=== PATIENT | male | born 1955 | race Caucasian/White ===

== ENCOUNTER → 2016-09-14 | Outpatient (CLI) | payer BC, OTHER ==
[~2016-09-14] VITALS: Ht 172.7 cm; Wt 83.7 kg
[~2016-09-14] MED LIST: HYDROCODON-ACE1 EAC5 PO; HYDROCODONE-AP1 EAC6 PO; HYDROCODONE-AP1 EACH PO; HYDROXYCHLOROQ200 M1 PO; HYSINGLA ER40 MG PO; IBUPROFEN 400400 M1 PO; TRAMADOL 50 MG50 MG PO
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
[2016-09-14 08:09] VITALS: BP 126/90
== END ==
LOC: PAIN 06:03
DX: G89.29 Other chronic pain (principal); M19.90 Unspecified osteoarthritis, unspecified site

== ENCOUNTER → 2016-11-08 | Outpatient (CLI) | payer BC, OTHER | LOC: RAD 15:11 | DX: N20.0 Calculus of kidney (principal); R31.9 Hematuria, unspecified ==

== ENCOUNTER → 2016-12-07 | Outpatient (CLI) | payer BC, OTHER ==
[~2016-12-07] VITALS: Ht 175.3 cm; Wt 80.6 kg
[~2016-12-07] MED LIST changes: +ELIQUIS5 MG PO; +LOPRESSOR50 PO
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
[2016-12-07 08:08] VITALS: BP 141/84
== END ==
LOC: PAIN 07:05
DX: M17.0 Bilateral primary osteoarthritis of knee (principal)

== ENCOUNTER → 2017-05-17 | Outpatient (CLI) | payer BC, OTHER ==
[~2017-05-17] VITALS: Ht 175.3 cm; Wt 84.5 kg
[~2017-05-17] MED LIST changes: +KLOR-CON 1010 MEQ PO
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
[2017-05-17 09:56] VITALS: BP 162/86
== END ==
LOC: PAIN 06:43
DX: M25.561 Pain in right knee (principal); M25.562 Pain in left knee; M25.571 Pain in right ankle and joints of right foot; M25.572 Pain in left ankle and joints of left foot; M79.641 Pain in right hand; M79.642 Pain in left hand; M19.90 Unspecified osteoarthritis, unspecified site; Z98.890 Other specified postprocedural states

== ENCOUNTER → 2017-08-04 | Outpatient (CLI) | payer BC, OTHER ==
[~2017-08-04] VITALS: Ht 175.3 cm; Wt 84.5 kg
--- NOTE | ~2017-08-04 | HPC ---
[facility] [address] [address] PAIN MANAGEMENT CONSULTATION Name: ASHLEY JERONIMO Room #: REG [facility] Candi.#: [id number] Admission: 08/04/17 Attend Phys: Shyam Flores MD Discharge: Date of : 57 Report #: [id number] THIS REPORT FOR: //name// CC: Shaym Marie MD DATE OF SERVICE: 08/04/2017 FOLLOWUP COMPLAINT: "Things are going well. Medications working good." FOLLOWUP HISTORY: The patient is a 62-year-old gentleman who has been followed in the pain clinic. 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 He has been busy and traveling. Overall, things are going reasonably well. He finds his medications are helpful. He is having no complications from their use. He is happy with the results of medication. He is clear in mentation. He keeps his medication in a guarded area. He is watching the dialogue regarding opioid medications in the media. He feels that his medications are working well. Rates his pain as a 3/10. As you recall, he has pain in his knees, ankles and hands as a result of arthritis. He would like to continue with his medications and feel that they are enabling him to stay gainfully employed without an active. ALLERGIES: No known drug allergies. MEDICATIONS: Ibuprofen 400 mg q.i.d. p.r.n., potassium 10 mEq, hydrocodone/acetaminophen 10/325 one p.o. q. 4 hours p.r.n. pain. PAIN CLINIC ASSESSMENT: 1. History of osteoarthritis involving the right lower extremity, right upper extremity, left upper extremity and left lower extremity. 2. Pain intensity 06/24. 3. Fall risk. The patient has not fallen. 4. Blood thinner. The patient is not on a blood thinner 5. History of hypertension. The patient is not being treated for hypertension. 6. Opioid therapy greater than 6 weeks. The patient is receiving opioid medications from the pain clinic. 7. Risk assessment tool. 8. Functional assessment tool. 9. Recreational drug use. Denies use of recreational drugs. 10. Tobacco: Never used tobacco. 11. Alcohol frequency, 1-2 alcoholic beverages weekly. PHYSICAL EXAMINATION: VITAL SIGNS: Height 5 feet 9, weight 186 pounds, BMI is 27. Blood pressure 136/87, pulse 93, respiratory rate 16, room air saturation 100%. [place] [address] PAIN MANAGEMENT CONSULTATION Name: ASHLEY JERONIMO Room #: REG [facility]#: [id number] Admission: 08/04/17 Attend Phys: Shyam Flores MD Discharge: Date of : 57 Report #: [id number] GENERAL: The patient is a well-developed white male, appears his stated age. He is alert and oriented x 3. Affect is appropriate. Speech is fluent. The patient appears happy. HEENT: Normocephalic, atraumatic. Extraocular eye muscles intact. Sclerae is nonenteric. Hearing is within normal limits. Mucous membranes are moist NECK: Without bruits. Good range of motion, without adenopathy. HEART: Regular rate. ABDOMEN: Nontender, without organomegaly. MUSCULOSKELETAL: Without significant scoliosis, kyphosis or lordosis. Upper muscle groups are 5/5. For the major muscle groups in the upper extremity with symmetry and without sensory change. Lower extremity some pain and discomfort in the lower portion of the back with 5/5 muscle strength in this area as well. He has some pain and discomfort in the low back area, knees and ankles secondary to osteoarthritis. IMPRESSION: 1. History of osteoarthritis. 2. History of anterior cruciate ligament tear. 3. History of rheumatoid arthritis. 4. Lower upper extremity, upper extremity, and right upper extremity affected by rheumatoid arthritis. IMPRESSION: 1. Chronic pain secondary to chronic back, knee and ankle pain. 2. History of chest pain, status post surgery for constrictive pericarditis. 3. Osteoarthritis. 4. History of torn anterior cruciate ligament has been repaired. RECOMMENDATIONS: We discussed treatment options with the patient. He finds that he is able pick and use his medications to remain active. He has had no complications with their use. He continues to watch the media report regarding opioid medications. He is not having any problems with his medications. He is not having any significant problems with tolerance. Overall, he finds the medications enable him to stay gainfully employed and enjoy a reasonable level of activity. He would like to continue with his medications. We would like to thank you for letting us participate in his care. A script for his medications of hydrocodone 10/325 one p.o. 6 times per day, has been written. He will call us if he has any problems with the medications. We would like to thank you for letting us participate in his care. We hope he continues to improve. <ELECTRONICALLY SIGNED> By: Shyam Flores MD 08/08/17 0823 1436 14 Shyam Flores MD /PMT
[2017-08-04 09:56] VITALS: BP 136/87
== END ==
LOC: PAIN 07:06
DX: G89.29 Other chronic pain (principal); M54.9 Dorsalgia, unspecified; M25.561 Pain in right knee; M25.562 Pain in left knee; M25.571 Pain in right ankle and joints of right foot; M25.572 Pain in left ankle and joints of left foot; M19.90 Unspecified osteoarthritis, unspecified site

== ENCOUNTER → 2017-10-25 | Outpatient (CLI) | payer BC, OTHER ==
[~2017-10-25] VITALS: Ht 175.3 cm; Wt 82.4 kg
--- NOTE | ~2017-10-25 | HPC ---
[facility] [address] [place] [address] PAIN MANAGEMENT CONSULTATION Name: ASHLEY JERONIMO Room #: REG [facility]#: [id number] Admission: 10/25/17 Attend Phys: Zach Booker DO Discharge: Date of : 57 Report #: [id number] THIS REPORT FOR: //name// CC: Zach Marie MD DATE OF SERVICE: 10/25/2017 REFERRING PHYSICIAN: Edwar Marie MD CHIEF COMPLAINT: Low back pain, bilateral lower extremity pain. HISTORY OF PRESENT ILLNESS: As you know, the patient is a very pleasant 62-year-old male who returns today in followup visit for medication management. He typically follows with my partner, Dr. Daniel Flores, for medication therapies. He is currently taking hydrocodone 10/325 up to 6 a day. He has precluded from having a long-acting opioid medications per his employers. 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 He subsequently changed jobs, but they have the same criteria. He continues to take hydrocodone 60 mg dose per day with good efficacy. He is denying any side effects to therapy including somnolence, decreased mental acuity, disorientation and confusion. He places pain score no greater than 3/10. He returns requesting refill on medications. ALLERGIES: No known drug allergies. CURRENT MEDICATIONS: Hydrocodone 10/325 six a day, potassium chloride 10 mEq p.o. q. day, ibuprofen 400 mg 3 times a day. SOCIAL HISTORY: The patient denies tobacco, alcohol, IV or illicit drug use. He is working, not receiving workmen's compensation, unaccompanied today. IMAGING: There is no new imaging available. PHYSICAL EXAMINATION: VITAL SIGNS: Blood pressure 156/101, pulse is 111. Respiratory rate 16, unlabored. The patient is 94% on room air. Height 5 feet 9 inch tall, weight 181.6 pounds, BMI calculated 26.8. GENERAL: Well-developed, well-nourished, well-hydrated 62-year-old male, appears his stated age, placing current pain score at 3/10. HEENT: Normocephalic, atraumatic. Pupils equal, round, reactive to light. Extraocular muscles are intact. Sclerae nonicteric, without injection. Speech is fluent. EXTREMITIES: Show no clubbing, no cyanosis, no edema. [address] [address] PAIN MANAGEMENT CONSULTATION Name: ASHLEY JERONIMO Room #: REG [facility]#: [id number] Admission: 10/25/17 Attend Phys: Zach Booker DO Discharge: Date of : 57 Report #: [id number] MUSCULOSKELETAL: Upper extremity strength, lower extremity strength 5/5. He is intact to light touch from C5-T1 dermatomes, from L1 through S2 dermatomes. Active and passive range of motion of the bilateral knees cause intensification of pain. Lumbar provocation testing causes intensification of axial back pain, no radiation of symptoms. ASSESSMENT: 1. Lumbosacral spondylosis without radiculopathy. 2. Bilateral knee osteoarthritis. 3. Opioid dependency. 4. Chronic intractable pain. PLAN: 1. The patient returns today in followup visit for medication management. We have had a long discussion today about opioid use for chronic pain issues. The patient currently takes 60 mg morphine equivalents a day, which is below the CDC guidelines of no more than 90 morphine equivalents a day. The patient is taking hydrocodone 10/325 up to 6 a day as he is not able to have long-acting opioids per his employer's request. The patient has returned requesting refill on medications. He is denying side effects to therapy and feels are working beneficially. 2. The patient was provided prescription of hydrocodone 10/325 one tab p.o. q.4 hours p.r.n. for pain, I have given the patient #180, releases of today and 4 weeks from today. He will follow up with Dr. Flores in 2 months. 3. The patient is to fill his prescriptions today. There has been some concern about filling of medications with specific number of pills. I do not believe his third constitution party payer has restrictions on number of pills, mainly a restriction upon a total dosage. The patient will attempt to fill this medication today. We will adjust therapy if necessary. By: [id number] Zach Booker DO /nt
[2017-10-25 07:54] VITALS: BP 156/101
== END ==
LOC: PAIN 07:42
DX: M47.27 Other spondylosis with radiculopathy, lumbosacral region (principal); M17.0 Bilateral primary osteoarthritis of knee; F11.20 Opioid dependence, uncomplicated; G89.4 Chronic pain syndrome

== ENCOUNTER → 2018-03-07 | Outpatient (CLI) | payer BC, OTHER ==
[~2018-03-07] VITALS: Ht 175.3 cm; Wt 85.3 kg
[2018-03-07 08:17] VITALS: BP 141/89
== END ==
LOC: PAIN 06:24
DX: M54.5 Low back pain (principal); M25.561 Pain in right knee; M25.562 Pain in left knee; M79.642 Pain in left hand; M79.641 Pain in right hand; G89.29 Other chronic pain; M25.572 Pain in left ankle and joints of left foot; M25.571 Pain in right ankle and joints of right foot; M06.842 Other specified rheumatoid arthritis, left hand; M06.841 Other specified rheumatoid arthritis, right hand; M06.89 Other specified rheumatoid arthritis, multiple sites; Z79.891 Long term (current) use of opiate analgesic; Z72.89 Other problems related to lifestyle

== ENCOUNTER → 2018-05-29 | Outpatient (CLI) | payer BC, OTHER ==
[~2018-05-29] VITALS: Ht 175.3 cm; Wt 85.3 kg
[2018-05-29 09:12] VITALS: BP 134/80
--- NOTE | 2018-05-29 09:14 | NUR ---
Pain Clinic Assessment: 1. History of Osteoarthritis: Not Applicable History of Rheumatoid Arthritis: Left Lower Extremity Right Lower Extremity Left Upper Extremity Right Upper Extremity 2. Height: 5 ft. 9 in. 175.3 cm. Weight: 188.0 lb. oz. 85.276 kg. Patient's BMI: 27.8 3. Vital Signs: BP: 134/80 Pulse: 88 Resp: 16 Temp: 02 Sat: 97 ECG Mon: 4. Pain Intensity: 2 5. Fall Risk: Dizziness: N Needs help standing or walking: N Fallen in the last 3 months: N Fall risk comments: 6. Patient on Blood Thinner: None 7. History of Hypertension: Y 8. Opioid Therapy greater than 6 weeks: Y Opiate Contract Signed: 10/23/15 9. Risk Assessment Tool Provided: 10. Functional Assessment Tool: 11. Recreational Drug Use: Never Drug Type: Tobacco Use: Never Smoker Tobacco Type: Amount or Packs/day: How Many Years: Alcohol Use: Yes Frequency: Quant:
--- NOTE | 2018-05-30 07:34 | HPC ---
[facility] [address] [place] [address] PAIN MANAGEMENT CONSULTATION Name: ASHLEY JERONIMO Room #: REG [facility] [id number] Admission: 05/29/18 Attend Phys: Luz Elena Anglin Discharge: Date of : 57 Report #: [id number] THIS REPORT FOR: //name// CC: Luz Elena Marie DATE OF SERVICE: 05/29/2018 CHIEF COMPLAINT: Low back pain, knee pain and ankle pain. HISTORY OF PRESENT ILLNESS: The patient tells me that he is doing reasonably well with his current pain regimen, placing his pain score 2/10. He tells me it is constant, achy pain. 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 He tells me that he did have a bilateral hernia repair in April and has been healing quite nicely from that. The patient tells me that he is also having some left shoulder pain today. He tells me that he has inherited his arthritis from his mother, and he will be seeing Dr. Marie about that soon. ALLERGIES: No known drug allergies. CURRENT MEDICATIONS: Hydrocodone 10/325 one q.4 hours. Potassium 10 mEq twice daily, ibuprofen 400 mg as needed. PQRS: 1. The patient has some arthritic changes involving his lower extremities and bilateral shoulders. He is not being treated for rheumatoid arthritis. 2. Height is 5 feet 9 inches, weight is 188, BMI 27.8. 3. Vital signs: Blood pressure 134/80, pulse is 88, respirations 16, oxygen sat is 97%. 4. Pain score is 2/10. 5. Fall risk. He denies dizziness, does not need help walking or standing. Has not fallen in the last 3 months. 6. The patient is not on any blood thinners. He does have a history of hypertension, though not being treated for this presently. 7. Opioid therapy is greater than 6 weeks, therefore, an opioid contract is on the chart. His risk assessment tool is low. His functional assessment is 20/70. 8. The patient denies recreational drug use. He is not a smoker and occasionally drinks alcohol. We discussed treatment, and we looked at the prescription monitoring system. The patient is filling appropriately from Dr. Flores. He did have one fill when he had his hernia repair for a 5-day supply of hydrocodone. [place] [address] PAIN MANAGEMENT CONSULTATION Name: KANDACEASHLEY UNGER Room #: REG FABIAN King#: [id number] Admission: 05/29/18 Attend Phys: Luz Elena Anglin Discharge: Date of : 57 Report #: [id number] buccal drug screen on this patient today since we do not have a drug screen on our chart. PHYSICAL EXAMINATION: GENERAL: This is a well-developed, well-nourished white male, who appears his stated age. He is alert and orientated. His affect is appropriate. His speech is fluent. HEENT: Normocephalic, atraumatic. Extraocular eye muscles are intact. Mucous membranes are moist. MUSCULOSKELETAL: Muscle strength in the upper extremity judged to be 5/5 in all major muscle groups. Does complain of left shoulder pain today with rotation. Lower extremity strength judged to be 5/5 in all major muscle groups. The patient does complain of some osteoarthritis changes in his low back, knees, ankles and hands. IMPRESSION: 1. Pain secondary to chronic pain involving his back, knees, ankles and shoulders. 2. History of chest pain, status post surgery with removal of fibrous tissue. 3. Osteoarthritis. We reviewed the fact that opiate medications are being used to provide analgesia adequate to support activities of daily living, not attempting to achieve a specific pain score on the 0-10 Visual Analog Scale. The current opiate medications are providing sufficient analgesia to allow the patient to participate in activities of daily living. The patient is not exhibiting any aberrant behavior suggestive of drug diversion. The patient is not having any adverse reactions to medications. The patient is not suffering from daytime somnolence or mental acuity changes. The patient is managing opiate-induced constipation with appropriate oyxr-ovp-cvykmmr agents and dietary considerations. The patient was counseled on concern for caution with operating a motor vehicle while using opiate medications. A physical exam was performed and the patient's functional status was evaluated. All patients with back pain were advised against the bed rest greater than 4 days and were advised to return to normal activities. Pain score assessment was noted and the treatment plan was reviewed with the patient. All current medications, both prescribed and OTC were reviewed and reconciled on the electronic medical record. Tobacco screening was accomplished and smoking cessation was advised when indicated. BMI was noted and diet/exercise modification was recommended for all patients following outside normal parameters. I reviewed with the patient today their responsibilities to safeguard prescription medications, reviewed their responsibility to utilize medications only as prescribed by the physician. They are to seek and receive pain [address] [address] PAIN MANAGEMENT CONSULTATION Name: ASHLEY JERONIMO Room #: REG FABIAN King#: [id number] Admission: 05/29/18 Attend Phys: Luz Elena Anglin Discharge: Date of : 57 Report #: [id number] medications only from 1 physician group ( [facility]). They are to use 1 pharmacy and keep the clinic informed if they change pharmacies. Their responsibilities include making followup visits in a timely fashion and to avoid abrupt discontinuation of medication usage. Their responsibilities further include bringing their medications (bottles from the pharmacy with residual pills) to the visit for possible confirmation of pill counts and the patient understands it is their responsibility to submit to random drug screens to ensure both that the medications prescribed are present, and that no other controlled substances are present. All prescriptions provided today were generated electronically. RECOMMENDATIONS: 1. We discussed treatment options with the patient today. We discussed the CDC guidelines of morphine milliequivalents. The patient is currently at 60 morphine mEq, which falls in the guidelines below 90s that they would like us to adhere to. The patient will be given 3 months of hydrocodone 10/325, quantity #180 for today, 4-week release and 8-week release. 2. We will check a buccal drug screen on the patient today since there is not one on our chart. We would like to have yearly checks of these. The patient is agreeable with these. 3. We did talk briefly about the patient's shoulder and ongoing discomfort. We talked about treatment options other than ibuprofen like Meloxicam or Celebrex or Voltaren gel or DSMO that the patient has used in the past years ago for ankle pain. The patient has an appointment with Dr. Marie soon to discuss his shoulder issues. 4. The patient will be seen in 3 months' time. 5. The patient is seen in collaboration today with Dr. Zach Booker. <ELECTRONICALLY SIGNED> By: Luz Elena Anglin 05/30/18 0734 [id number] Luz Elena Anglin /nt
== END ==
LOC: PAIN 08:43
DX: M19.90 Unspecified osteoarthritis, unspecified site (principal); G89.29 Other chronic pain; M54.5 Low back pain; M25.561 Pain in right knee; M25.562 Pain in left knee; M25.511 Pain in right shoulder; M25.512 Pain in left shoulder; M25.572 Pain in left ankle and joints of left foot; M25.571 Pain in right ankle and joints of right foot

== ENCOUNTER → 2018-08-15 | Outpatient (CLI) | payer BC, OTHER ==
[~2018-08-15] VITALS: Ht 175.3 cm; Wt 84.8 kg
[2018-08-15 11:21] VITALS: BP 136/89
--- NOTE | 2018-08-15 11:25 | NUR ---
Pain Clinic Assessment: 1. History of Osteoarthritis: Not Applicable History of Rheumatoid Arthritis: Left Lower Extremity Right Lower Extremity Left Upper Extremity Right Upper Extremity 2. Height: 5 ft. 9 in. 175.3 cm. Weight: 187.0 lb. oz. 84.823 kg. Patient's BMI: 27.6 3. Vital Signs: BP: 136/89 Pulse: 98 Resp: 16 Temp: 02 Sat: 97 ECG Mon: 4. Pain Intensity: 3 5. Fall Risk: Dizziness: N Needs help standing or walking: N Fallen in the last 3 months: N Fall risk comments: 6. Patient on Blood Thinner: None 7. History of Hypertension: Y 8. Opioid Therapy greater than 6 weeks: Y Opiate Contract Signed: 10/23/15 9. Risk Assessment Tool Provided: 0-low 10. Functional Assessment Tool: 11. Recreational Drug Use: Never Drug Type: Tobacco Use: Never Smoker Tobacco Type: Amount or Packs/day: How Many Years: Alcohol Use: Yes Frequency: Quant:
--- NOTE | 2018-08-16 13:27 | HPC ---
[facility] [address] [place] [address] PAIN MANAGEMENT CONSULTATION Name: ASHLEY JERONIMO Room #: REG Rosangela King#: [id number] Admission: 08/15/18 ������������������ Attend Phys: Luz Elena Anglin Discharge: ������������������ Date of : 57 Report #: [id number] THIS REPORT FOR: //name// CC: Luz Elena Rodrigueze [facility] DATE OF SERVICE: 08/15/2018 CHIEF COMPLAINT: Low back pain, knee pain and ankle pain. HISTORY OF PRESENT ILLNESS: This is a very pleasant 63-year-old gentleman who returns to the pain clinic today for refill of his medications for his ongoing low back, knee, ankle and hand pain. He tells me that his hips have started hurting as well and he has an appointment with his primary care doctor next week who will probably refer him back to his band head saw operator that he has seen in the past. His pain score today is a 3/10, worse with lying down and worse in the morning. It is better with his medication as well as activity and stretching and massage. He denies any problems with constipation or daytime sleepiness. He would just like a refill of his medications today. ALLERGIES: No known drug allergies. CURRENT LIST OF MEDICATIONS: Hydrocodone 10/325 every 4 hours p.r.n., potassium 10 mEq b.i.d., ibuprofen p.r.n. and aspirin 81 mg daily. PQRS: 1. He has arthritic changes involving his lower extremities, shoulders, hands and hips. He is not being treated for rheumatoid arthritis currently. 2. Height is 5 feet 9 inches, weight is 187. BMI is 27. 3. Vital signs: Blood pressure 136/89, pulse is 98, respirations 16, oxygen sat 97%. 4. Pain score 3/10. 5. The patient denies dizziness. Does not need help walking or standing and has not fallen in the last 3 months. 6. The patient is not on any blood thinners and does take medicine for hypertension. 7. Opiate therapy is greater than 6 weeks; therefore, an opioid signed contract is on the chart. 8. Risk assessment tool is low. Functional assessment is of . 9. Recreational drug use, he denies. He is not a smoker and occasionally drinks alcohol. We did check the prescription monitoring system. The patient is filling appropriately with his medications and is due at this time for those refills. The patient also has a drug screen that we performed on the last visit that is appropriate, that is on the chart. He tells me he [place] [address] PAIN MANAGEMENT CONSULTATION Name: ASHLEY JERONIMO Room #: REG Rosangela King#: [id number] Admission: 08/15/18 ������������������ Attend Phys: Luz Elena Anglin Discharge: ������������������ Date of : 57 Report #: [id number] PHYSICAL EXAMINATION: GENERAL: This is a well-developed, well-nourished white gentleman who appears his stated age. Placing his pain score today at 3/10. He is alert and orientated. His affect is appropriate. HEENT: Normocephalic, atraumatic. Extraocular eye muscles are intact. Mucous membranes are moist. MUSCULOSKELETAL: Muscle strength is judged to be 5/5 in all major muscle groups in his upper and lower extremities bilaterally. He does complain of hand pain, shoulder pain and hip pain today thinking that his rheumatoid arthritis is flaring up, but he also does have osteoarthritis. IMPRESSION: 1. Pain secondary to chronic pain involving his back, knees, ankles and shoulders. 2. History of chest pain, status post surgery with removal of fibrosis tissue and ablation. 3. Osteoarthritis. We reviewed the fact that opiate medications are being used to provide analgesia adequate to support activities of daily living, not attempting to achieve a specific pain score on the 0-10 Visual Analog Scale. The current opiate medications are providing sufficient analgesia to allow the patient to participate in activities of daily living. The patient is not exhibiting any aberrant behavior suggestive of drug diversion. The patient is not having any adverse reactions to medications. The patient is not suffering from daytime somnolence or mental acuity changes. The patient is managing opiate-induced constipation with appropriate omus-fpi-awajymu agents and dietary considerations. The patient was counseled on concern for caution with operating a motor vehicle while using opiate medications. A physical exam was performed and the patient's functional status was evaluated. All patients with back pain were advised against the bed rest greater than 4 days and were advised to return to normal activities. Pain score assessment was noted and the treatment plan was reviewed with the patient. All current medications, both prescribed and OTC were reviewed and reconciled on the electronic medical record. Tobacco screening was accomplished and smoking cessation was advised when indicated. BMI was noted and diet/exercise modification was recommended for all patients following outside normal parameters. I reviewed with the patient today their responsibilities to safeguard prescription medications, reviewed their responsibility to utilize medications only as prescribed by the physician. They are to seek and receive pain medications only from 1 physician group ([facility]). They are to use 1 pharmacy and keep the clinic informed if they change pharmacies. Their [facility] [address] [place] [address] PAIN MANAGEMENT CONSULTATION Name: ASHLEY JERONIMO Room #: REG FABIAN King#: [id number] Admission: 08/15/18 ������������������ Attend Phys: Luz Elena Anglin Discharge: ������������������ Date of : 57 Report #: [id number] responsibilities include making followup visits in a timely fashion and to avoid abrupt discontinuation of medication usage. Their responsibilities further include bringing their medications (bottles from the pharmacy with residual pills) to the visit for possible confirmation of pill counts and the patient understands it is their responsibility to submit to random drug screens to ensure both that the medications prescribed are present, and that no other controlled substances are present. All prescriptions provided today were generated electronically. PLAN: 1. We discussed treatment options with the patient today. The patient tells me he is having more general aches and pains in his joints. He is scheduled to see Dr. Edwar Marie next week and thinks that he will go back to the band head saw operator that he has seen in the past. He currently takes ibuprofen on an as needed basis, not even taking it daily. I encouraged him to take this at least 1 pill a day. We did discuss other nonsteroidal anti-inflammatories such as Celebrex and meloxicam that are stronger prescription strength. Celebrex is usually given when people have cardiac risk, but he will discuss this with his primary care and his band head saw operator. They may decide to start him on some rheumatological medicines. 2. We discussed the buccal drug screen that was performed on the patient in May. It is appropriate for his medications that he is taking, though he received a large bill. We are told this is to be covered by his insurance company, gave him names for 4M to discuss this bill that the patient did receive. 3. Prescriptions given today for hydrocodone one p.o. q. 4 hours p.r.n. #180 to be released today for an 8-week. 4. The patient will return for the followup in 3 months' time period and make an appointment to see Dr. Flores. Dr. Flores collaborated care and saw the patient today. ��������������������������������������������� <ELECTRONICALLY SIGNED> ���������������������������������������� By: Luz Elena Anglin ��������������������������������������������� 08/16/18 1327 07 57 Luz Elena Anglin /nt
== END ==
LOC: PAIN 07:20
DX: M19.90 Unspecified osteoarthritis, unspecified site (principal); G89.29 Other chronic pain; M54.5 Low back pain; M25.561 Pain in right knee; M25.562 Pain in left knee; M25.511 Pain in right shoulder; M25.512 Pain in left shoulder; M25.571 Pain in right ankle and joints of right foot; M25.572 Pain in left ankle and joints of left foot; Z86.79 Personal history of other diseases of the circulatory system; Z79.899 Other long term (current) drug therapy

== ENCOUNTER → 2018-11-02 | Outpatient (CLI) | payer BC, OTHER ==
[~2018-11-02] VITALS: Ht 175.3 cm; Wt 83.0 kg
[2018-11-02 08:24] VITALS: BP 141/93
--- NOTE | 2018-11-02 08:25 | NUR ---
Pain Clinic Assessment: 1. History of Osteoarthritis: Not Applicable History of Rheumatoid Arthritis: Left Lower Extremity Right Lower Extremity Left Upper Extremity Right Upper Extremity 2. Height: 5 ft. 9 in. 175.3 cm. Weight: 183.0 lb. oz. 83.008 kg. Patient's BMI: 27.0 3. Vital Signs: BP: 141/93 Pulse: 96 Resp: 16 Temp: 02 Sat: 97 ECG Mon: 4. Pain Intensity: 3 5. Fall Risk: Dizziness: N Needs help standing or walking: N Fallen in the last 3 months: N Fall risk comments: 6. Patient on Blood Thinner: None 7. History of Hypertension: Y 8. Opioid Therapy greater than 6 weeks: Y Opiate Contract Signed: 10/23/15 9. Risk Assessment Tool Provided: 0-low 10. Functional Assessment Tool: 11. Recreational Drug Use: Never Drug Type: Tobacco Use: Never Smoker Tobacco Type: Amount or Packs/day: How Many Years: Alcohol Use: Yes Frequency: Quant:
--- NOTE | 2018-11-05 09:36 | HPC ---
[facility] [address] [address] PAIN MANAGEMENT CONSULTATION Name: ASHLEY JERONIMO Room #: REG Rosangela King#: [id number] Admission: 11/02/18 ������������������ Attend Phys: Luz Elena Anglin Discharge: ������������������ Date of : 57 Report #: [id number] THIS REPORT FOR: //name// CC: Luz Elena Marie DATE OF SERVICE: 11/02/2018 CHIEF COMPLAINT: Low back pain, knee pain, and ankle pain. HISTORY OF PRESENT ILLNESS: This is a very pleasant 63-year-old gentleman who returns to the pain clinic today for refill of his medications that he uses to treat his ongoing low back pain, knee pain, and ankle pain. He reports a pain score of 3/10 today, it is usually worse in the morning and when he lies down. He is very active and that does help relieve some of his pain, also stretching and exercise. His hydrocodone, he finds very beneficial and does not cause him any constipation issues. He tells me that he was walking the other day and felt something pull in his heel. It has been causing him some pain recently. He is going to see Dr. Marie to have this x-rayed or checked out to see if he tore something in his heel or possibly is a neuroma, or it could be plantar fasciitis. He said it has just has been ongoing for a short period of time and does not seem to be getting better. ALLERGIES: No known drug allergies. CURRENT LIST OF MEDICATIONS: Hydrocodone 10/325 every 4 hours p.r.n., potassium 10 mEq daily, ibuprofen one every 4-6 hours p.r.n. PQRS: 1. He has arthritic changes in his lower extremities, shoulder, hands and hips. 2. Height is 5 feet 9 inches, weight is 183, BMI is 27. 3. Vital signs, BP 141/93, pulse is 96, respirations 16, oxygen sat is 97. 4. Pain score 3/10. 5. Denies dizziness. Does not need help walking or standing. He has not fallen in the last 3 months. 6. The patient is not on any blood thinners. He does take medicine for hypertension. 7. His opioid therapy is greater than 6 weeks; therefore, an opiate signed contract is on the chart. His risk assessment tool is low. Functional assessment is . 8. Recreational drug use, he denies. He is not a smoker and occasionally drinks alcohol. [facility] [address] [place] [address] PAIN MANAGEMENT CONSULTATION Name: ASHLEY JERONIMO Room #: REG CLRosangela King#: [id number] Admission: 11/02/18 ������������������ Attend Phys: Luz Elena Anglin Discharge: ������������������ Date of : 57 Report #: [id number] We did check the prescription monitoring system. The patient is filling appropriately for his medications. He tells me that he will be going out of town on vacation next week, is wondering if he is able to get it filled a couple of days early. I informed him that should not be a problem. If the pharmacy gives him problems with it, just to have them call us and we will release that medication early. But it looks like according to his last refill, the insurance should not have an issue with doing that. The patient has a recent drug screen on the chart that is appropriate for his medications. PHYSICAL EXAMINATION: GENERAL: This is a well-developed, well-nourished white gentleman who appears his stated age, placing his current pain score today at 3/10. He is alert and oriented. HEENT: Normocephalic, atraumatic. Extraocular eye muscles are intact. Mucous membranes are moist. MUSCULOSKELETAL: He complains of discomfort in his hands, shoulders and hip pain today, as well as his left heel, tells me that it is painful when he walks on it. The patient has a normal gait and his muscle strength is equal and symmetrical in all major muscle groups in his upper and lower extremities. IMPRESSION: 1. Chronic pain involving multiple pain generators of knee, back, ankles and shoulders. 2. History of chest pain, status post surgery and removal of fibrous tissue and ablation. 3. Osteoarthritis. 4. Management of high-risk medications under terms of written opioid agreement. We reviewed the fact that opiate medications are being used to provide analgesia adequate to support activities of daily living, not attempting to achieve a specific pain score on the 0-10 Visual Analog Scale. The current opiate medications are providing sufficient analgesia to allow the patient to participate in activities of daily living. The patient is not exhibiting any aberrant behavior suggestive of drug diversion. The patient is not having any adverse reactions to medications. The patient is not suffering from daytime somnolence or mental acuity changes. The patient is managing opiate-induced constipation with appropriate vdhy-dba-kqbeela agents and dietary considerations. The patient was counseled on concern for caution with operating a motor vehicle while using opiate medications. A physical exam was performed and the patient's functional status was evaluated. All patients with back pain were advised against the bed rest greater than 4 days and were advised to return to normal activities. Pain score assessment was noted and the treatment plan was reviewed with the patient. All current medications, both prescribed and OTC were reviewed and reconciled on the electronic medical record. Tobacco screening was accomplished and smoking [address] [address] PAIN MANAGEMENT CONSULTATION Name: ASHLEY JERONIMO Room #: REG [facility].#: [id number] Admission: 11/02/18 ������������������ Attend Phys: Luz Elena Anglin Discharge: ������������������ Date of : 57 Report #: [id number] cessation was advised when indicated. BMI was noted and diet/exercise modification was recommended for all patients following outside normal parameters. I reviewed with the patient today their responsibilities to safeguard prescription medications, reviewed their responsibility to utilize medications only as prescribed by the physician. They are to seek and receive pain medications only from 1 physician group ( [facility]). They are to use 1 pharmacy and keep the clinic informed if they change pharmacies. Their responsibilities include making followup visits in a timely fashion and to avoid abrupt discontinuation of medication usage. Their responsibilities further include bringing their medications (bottles from the pharmacy with residual pills) to the visit for possible confirmation of pill counts and the patient understands it is their responsibility to submit to random drug screens to ensure both that the medications prescribed are present, and that no other controlled substances are present. All prescriptions provided today were generated electronically. PLAN: 1. We discussed treatment options with the patient today. The patient tells me he is doing quite well on his current pain regimen, enables him to work and be active. Scripts given today for hydrocodone 10/325, #180, the patient takes one pill every 4 hours, scripts given for today for an 8-week release. We may need to give him a vacation fill. The patient will call us if he has issues filling this medication next week prior to his vacation. 2. The patient tells me he has been having some heel pain. Feels like he tore something when he was walking. He is going to see Dr. Marie for an appointment. 3. Dr. Flores did come and see the patient and collaborated care today. The patient will call for appointment in 3 months. ��������������������������������������������� <ELECTRONICALLY SIGNED> ���������������������������������������� By: Luz Elena Anglin ��������������������������������������������� 11/05/18 0936 0904 0945 Luz Elena Anglin /harry
== END ==
LOC: PAIN 08:07
DX: M54.5 Low back pain (principal); M25.569 Pain in unspecified knee; M25.579 Pain in unspecified ankle and joints of unspecified foot; M25.519 Pain in unspecified shoulder; M19.90 Unspecified osteoarthritis, unspecified site; Z79.891 Long term (current) use of opiate analgesic

== ENCOUNTER → 2019-01-25 | Outpatient (CLI) | payer BC, OTHER ==
[~2019-01-25] VITALS: Ht 175.3 cm; Wt 83.5 kg
[2019-01-25 14:38] VITALS: BP 151/86
--- NOTE | 2019-01-25 14:39 | NUR ---
Pain Clinic Assessment: 1. History of Osteoarthritis: Not Applicable History of Rheumatoid Arthritis: Left Lower Extremity Right Lower Extremity Left Upper Extremity Right Upper Extremity 2. Height: 5 ft. 9 in. 175.3 cm. Weight: 184.0 lb. oz. 83.462 kg. Patient's BMI: 27.2 3. Vital Signs: BP: 151/86 Pulse: 92 Resp: 18 Temp: 02 Sat: 100 ECG Mon: 4. Pain Intensity: 3 5. Fall Risk: Dizziness: N Needs help standing or walking: N Fallen in the last 3 months: N Fall risk comments: 6. Patient on Blood Thinner: None 7. History of Hypertension: Y 8. Opioid Therapy greater than 6 weeks: Y Opiate Contract Signed: 10/23/15 9. Risk Assessment Tool Provided: 0-low 10. Functional Assessment Tool: 11. Recreational Drug Use: Never Drug Type: Tobacco Use: Never Smoker Tobacco Type: Amount or Packs/day: How Many Years: Alcohol Use: Yes Frequency: Quant:
--- NOTE | 2019-02-06 09:44 | HPC ---
[facility] [address] [address] PAIN MANAGEMENT CONSULTATION Name: ASHLEY JERONIMO Room #: REG PADMINIRosangela King#: [id number] Admission: 01/25/19 Attend Phys: Shyam Flores MD Discharge: Date of : 57 Report #: [id number] THIS REPORT FOR: //name// CC: Shyam Marie DATE OF SERVICE: 01/25/2019 CHIEF COMPLAINT: Here for medication renewal. HISTORY: The patient is a 63-year-old gentleman, who has been followed in the pain clinic. He does have a chronic history of pain. It involves his back, ankles, knees, and hands. 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 He continues to find that his medications were beneficial. He returns today with hopes of having his medications renewed. He does not have any problems with his medications. He rates his pain as a 3/10 today. CURRENT MEDICATIONS: Hydrocodone 10/325 one p.o. q.4-6 hours p.r.n., potassium 10 mEq, and ibuprofen 200 mg q.4-6 hours p.r.n. ALLERGIES: No known drug allergies. PAIN CLINIC ASSESSMENT AND PQRS: 1. The patient has arthritic changes involving his extremities including his shoulders, hands, and hips. 2. Pain intensity is 3/10. 3. Fall history: The patient has not fallen in the last 3 months. 4. Blood thinner. The patient is not on a blood thinning medication. 5. Hypertension. The patient is being treated for hypertension. 6. Opioids greater than 6 weeks. The patient received medication from one source, pain clinic. 7. Risk assessment tool, low for opioid use. 8. Functional assessment tool, . 9. Recreational drug use. The patient denies. 10. Tobacco: The patient has never smoked. 11. Alcohol: The patient occasionally drinks alcoholic beverages. PHYSICAL EXAMINATION: GENERAL: The patient is a well-developed, well-nourished white male. He appears his stated age. He is alert and oriented x 3. Affect is appropriate. Speech is fluent. Height is 5 feet 9 inches, weight is 184 pounds, and BMI is 27.7. VITAL SIGNS: Blood pressure is 151/86, pulse is 92, respiratory rate is 18, and room air saturation is 100%. HEENT: Normocephalic, atraumatic. Extraocular eye muscles intact. Sclerae nonicteric. Mucous membranes are moist. [facility] [address] [place] [address] PAIN MANAGEMENT CONSULTATION Name: ASHLEY JERONIMO Room #: REG Rosangela GermanTara#: [id number] Admission: 01/25/19 Attend Phys: Shyam Flores MD Discharge: Date of : 57 Report #: [id number] NECK: Without adenopathy or JVD. EXTREMITIES: Upper extremity muscle strength is judged to be 5/5 for the major muscle groups in the upper extremity. Lower extremity muscle strength is judged to be 5/5 for the major muscle groups in the lower extremity. The patient is without significant scoliosis, kyphosis, or lordosis. The patient does have pain in the low back area, knees, ankles, and hands secondary to osteoarthritis. IMPRESSION: 1. Pain secondary to chronic osteoarthritic change in the back, knees, and ankles. 2. History of chest pain, status post surgery and removal of fibrous tissue, which caused pericardial restriction a number of years ago. 3. Osteoarthritis. 4. History of torn anterior cruciate ligament, which was repaired in the past. RECOMMENDATIONS: We have discussed treatment options with the patient. Risk and use of opioid medications have been discussed in the past. They include the possibility of development of dependency and addiction. The patient is taking the medication as prescribed. He is showing no signs of addiction. He feels that these medications able him to engage in activities of daily living, he would not be able to without their use. He is aware of problems with opioid medications. He has seen that a number of patients have over the last year as a result of opioid use. A 70,000 people have in the last year as a result of overdosing. He keeps his medications in a guarded area. He finds that the medications continue to be beneficial and would like to continue their use. A script for his medications have been rewritten. He will continue with [place] 10 mg one p.o. q.4-6 hours total 180 pills have been dispensed. He will call us should he have any problems or concerns. We would like to thank you for letting us to participate in his care. We hope he continues to improve. <ELECTRONICALLY SIGNED> By: Shyam Flores MD 02/06/19 0944 1556 [id number] Shyam Flores MD /EJ
== END ==
LOC: PAIN 06:41
DX: Z76.0 Encounter for issue of repeat prescription (principal); M17.0 Bilateral primary osteoarthritis of knee; M19.072 Primary osteoarthritis, left ankle and foot; M19.071 Primary osteoarthritis, right ankle and foot; I10 Essential (primary) hypertension; Z79.891 Long term (current) use of opiate analgesic; Z79.899 Other long term (current) drug therapy

== ENCOUNTER → 2019-04-19 | Outpatient (CLI) | payer BC, OTHER ==
[~2019-04-19] VITALS: Ht 175.3 cm; Wt 86.2 kg
[2019-04-19 08:23] VITALS: BP 166/79
--- NOTE | 2019-04-22 14:16 | HPC ---
[facility] [address] [place] [address] PAIN MANAGEMENT CONSULTATION Name: ASHLEY JERONIMO Room #: REG Rosangela Christine#: [id number] Admission: 04/19/19 Attend Phys: Luz Elena Anglin Discharge: Date of : 57 Report #: [id number] THIS REPORT FOR: //name// CC: Luz Elena Marie MD DATE OF SERVICE: 04/19/2019 CHIEF COMPLAINT: Low back pain, knee pain, and ankle pain. HISTORY OF PRESENT ILLNESS: This is a very pleasant 63-year-old gentleman who returns to the pain clinic today for refill of his medication that he uses to help treat his ongoing low back pain, bilateral knee pain, ankle pain. He also has occasional shoulder pain. Today, he rates his pain score 2-3. He feels that his hydrocodone is very beneficial in controlling his pain. 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 He enjoys his job and plans on working for several more years. He feels that the pain medicine allows him to continue this. He denies any problems with constipation or daytime sleepiness or any other adverse side effects from the medication. He feels that his pain is worse with lying down or upon awakening in the morning, but as long as he takes his medication as well as does light stretching, he feels that his pain is well controlled. Today, he would like refills of his hydrocodone medicine. ALLERGIES: No known allergies. MEDICATIONS: Hydrocodone 10/325 p.r.n., potassium 10 mEq b.i.d. and ibuprofen 400 mg p.r.n. PQRS: 1. He has osteoarthritis in his knees, hands and ankles, also has rheumatoid arthritis in his hands and knees. 2. Height is 5 feet 9 inches, weight is 190 and BMI is 28. 3. Vital signs 166/79, pulse is 107, respirations 16, oxygen sat is 97. 4. Pain score is 2-3. 5. Denies dizziness, does not need help walking or standing, has not fallen in the last 3 months. 6. The patient is not on any blood thinners, but does have a history of hypertension, not currently taking medications. 7. Opioid therapy is greater than 6 weeks; therefore, an opioid signed contract is on the chart. Risk assessment tool is low. Functional assessment . 8. Recreational drug use, he denies. He is not a smoker and occasionally drinks alcohol. [address] [address] PAIN MANAGEMENT CONSULTATION Name: ASHLEY JERONIMO [id number] Admission: 04/19/19 Attend Phys: Luz Elena Anglin Discharge: Date of : 57 Report #: [id number] According to the prescription monitoring system, the patient is filling appropriately for his medications. He is due to fill those next week. There is a recent drug screen on the chart that is appropriate as well. PHYSICAL EXAMINATION: GENERAL: This is a well-developed, well-nourished white gentleman who appears his stated age, placing his current pain score 2-3. HEENT: Normocephalic, atraumatic. Extraocular eye muscles are intact. Mucous membranes are moist. MUSCULOSKELETAL: Has tenderness in his hands, shoulders and bilateral knees today. This is worse with ambulation. He has a normal gait. His lower extremity muscle strength is equal and symmetrical in all major muscle groups. IMPRESSION: 1. Chronic pain involving multiple pain generators of knee, back, ankles and shoulders. 2. History of chest pain, status post surgery with removal of fibrous tissue and ablation. 3. Osteoarthritis. 4. Management of high risk medications under terms of written opioid agreement. We reviewed the fact that opiate medications are being used to provide analgesia adequate to support activities of daily living, not attempting to achieve a specific pain score on the 0-10 Visual Analog Scale. The current opiate medications are providing sufficient analgesia to allow the patient to participate in activities of daily living. The patient is not exhibiting any aberrant behavior suggestive of drug diversion. The patient is not having any adverse reactions to medications. The patient is not suffering from daytime somnolence or mental acuity changes. The patient is managing opiate-induced constipation with appropriate vqgl-hyu-meozzor agents and dietary considerations. The patient was counseled on concern for caution with operating a motor vehicle while using opiate medications. PLAN: 1. We discussed treatment options with the patient today. The patient finds his medication very beneficial, so we will continue his hydrocodone 10/325, #180. This will be given for 3 months. The patient's morphine mEq per day is 60 MME according to the CDC guidelines. 2. The patient is seen in collaboration with Dr. Rojas Flores, he did see the patient today. The patient will follow up in 3 months. <ELECTRONICALLY SIGNED> By: Luz Elena Anglin 04/22/19 1416 [id number] Luz Elena Anglin /nt
== END ==
LOC: PAIN 06:48
DX: M25.561 Pain in right knee (principal); M25.562 Pain in left knee; G89.29 Other chronic pain; M19.90 Unspecified osteoarthritis, unspecified site; Z79.891 Long term (current) use of opiate analgesic

== ENCOUNTER → 2019-07-10 | Outpatient (CLI) | payer BC, OTHER ==
[~2019-07-10] VITALS: Ht 175.3 cm; Wt 85.9 kg
[2019-07-10 13:07] VITALS: BP 135/101
--- NOTE | 2019-07-10 13:14 | NUR ---
Pain Clinic Assessment: 1. History of Osteoarthritis: B/L KNEES B/L HANDS B/L ANKLES History of Rheumatoid Arthritis: B/L HANDS B/L KNEES 2. Height: 5 ft. 9 in. 175.3 cm. Weight: 189.4 lb. oz. 85.911 kg. Patient's BMI: 28.0 3. Vital Signs: BP: 135/101 Pulse: 111 Resp: 16 Temp: 02 Sat: 98 ECG Mon: 4. Pain Intensity: 3 5. Fall Risk: Dizziness: N Needs help standing or walking: N Fallen in the last 3 months: N Fall risk comments: 6. Patient on Blood Thinner: None 7. History of Hypertension: Y 8. Opioid Therapy greater than 6 weeks: Y Opiate Contract Signed: 10/23/15 9. Risk Assessment Tool Provided: 0-low 10. Functional Assessment Tool: 11. Recreational Drug Use: Never Drug Type: Tobacco Use: Never Smoker Tobacco Type: Amount or Packs/day: How Many Years: Alcohol Use: Yes Frequency: Quant:
--- NOTE | 2019-07-12 08:21 | HPC ---
[facility] [address] [address] PAIN MANAGEMENT CONSULTATION Name: ASHLEY JERONIMO Room #: REG FABIAN Christopher.#: [id number] Admission: 07/10/19 Attend Phys: Shyam Flores MD Discharge: Date of : 57 Report #: [id number] THIS REPORT FOR: cc: Edwar Marie MD,Edwar Flores,Shyam Sanchez MD ~ CC: Shyam Marie DATE OF SERVICE: 07/10/2019 CHIEF COMPLAINT: Things are going reasonably well. HISTORY: The patient is a very pleasant 64-year-old gentleman. 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 He has had some chronic pain issues. He is experiencing pain in his low back. He has bilateral knee pain. He has ankle pain. 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 He has returned today for renewal of his medications. Overall, things are going reasonably well. He is rating his pain as a 3/10. Again, the pain continues to be worse when he is lying down. Mornings are more problematic in later portion of the day. He does try to continue stretching and light exercise to help control pain. Denies any problem with constipation. Overall, feels that the medications are helpful. He has returned today for renewal of medications. He is somewhat concerned of others regarding the coronavirus. ALLERGIES: No known drug allergies. CURRENT MEDICATIONS: Hydrocodone 10/325 one p.o. q. 4-6 hours, potassium 10 mEq b.i.d., ibuprofen 400 mg p.r.n. PAIN CLINIC ASSESSMENT AND PQRS: 1. The patient has some osteoarthritic changes in his knees, in his hands, ankles and the patient is also being treated for rheumatoid arthritis in his hands and knees. 2. Height 5 feet 9 inches, weight 189 pounds, BMI is 28. 3. Vital Signs: Blood pressure 135/101, pulse 111, respiratory rate 16, room air saturation 98%. 4. Pain intensity 06/24. 5. Fall risk. The patient has not fallen in the last 3 months. 6. Blood thinner. The patient is not on a blood thinning medication. 7. Hypertension. The patient is being treated for hypertension. 8. Opioids greater than 6 weeks. The patient received medication from one source the pain clinic. 9. Risk assessment tool, low for opioid use. 10. Functional assessment tool, . 11. Recreational drug use: [place] [address] PAIN MANAGEMENT CONSULTATION Name: ASHLEY JERONIMO Room #: REG [facility]#: [id number] Admission: 07/10/19 Attend Phys: Shyam Flores MD Discharge: Date of : 57 Report #: [id number] 12. Tobacco The patient has never smoked. 13. Alcohol. The patient occasionally drinks alcoholic beverages. PHYSICAL EXAMINATION: GENERAL: The patient is a well-developed, well-nourished, pleasant white male. Appears his stated age. He is alert and oriented x 3. His affect is appropriate. Speech is fluent. HEENT: Normocephalic, atraumatic. Extraocular eye muscles intact. Sclerae nonicteric. Mucous membranes are moist. NECK: Without adenopathy or JVD. HEART: Regular rate. ABDOMEN: Nontender. EXTREMITIES: Upper extremity muscle strength judged to be 5-/5 for the major muscle groups in the upper extremity. The patient has some pain and discomfort in his hands, shoulders and in his knees bilaterally. IMPRESSION: 1. Chronic pain involving multiple pain generators involving the knees, back, ankles and shoulders. 2. History of chest pain, status post surgery with removal of fibrous tissue around the heart and ablation. 3. Osteoarthritis. 4. Management of high risk assessment, opioid medications to help control pain. RECOMMENDATIONS: We discussed treatment options with the patient. At this juncture, he feels that the medications are working reasonably well. He does not have any untoward problems from its use. He is aware that opioid medications can become less effective over time because of development of tolerance. He is aware that certain patients have become addicted to medications. He has not shown any signs of addiction. He feels the medications continue to provide him benefit and he is able to stay gainfully employed. He is not having any significant problem with bowel or bladder dysfunction. He is able to think clearly. We will continue with his current medications. A script for renewal of his medications has been provided. The patient will continue with hydrocodone 10/325 one p.o. q. 4 hours p.r.n., total of 180 tablets monthly. He has been given a script for the next 3 months. We would like to thank you for letting us participate in his care. He will call us if he has any concerns. <ELECTRONICALLY SIGNED> By: Shyam Flores MD 07/12/19 0821 1548 50 Shyam Flores MD /EJ
== END ==
LOC: PAIN 06:53
DX: M54.5 Low back pain (principal); M25.561 Pain in right knee; M25.562 Pain in left knee; M25.579 Pain in unspecified ankle and joints of unspecified foot; Z86.79 Personal history of other diseases of the circulatory system; M19.90 Unspecified osteoarthritis, unspecified site; F11.20 Opioid dependence, uncomplicated; G89.4 Chronic pain syndrome

== ENCOUNTER → 2019-09-27 | Outpatient (CLI) | payer BC, OTHER ==
[~2019-09-27] VITALS: Ht 175.3 cm; Wt 84.5 kg
[2019-09-27 08:09] VITALS: BP 159/87
--- NOTE | 2019-09-27 08:17 | NUR ---
Pain Clinic Assessment: 1. History of Osteoarthritis: B/L KNEES B/L HANDS B/L ANKLES History of Rheumatoid Arthritis: B/L HANDS B/L KNEES 2. Height: 5 ft. 9 in. 175.3 cm. Weight: 186.2 lb. oz. 84.460 kg. Patient's BMI: 27.5 3. Vital Signs: BP: 159/87 Pulse: 108 Resp: 16 Temp: 02 Sat: 100 ECG Mon: 4. Pain Intensity: 3 5. Fall Risk: Dizziness: N Needs help standing or walking: N Fallen in the last 3 months: N Fall risk comments: 6. Patient on Blood Thinner: None 7. History of Hypertension: Y 8. Opioid Therapy greater than 6 weeks: Y Opiate Contract Signed: 10/23/15 9. Risk Assessment Tool Provided: 0-low 10. Functional Assessment Tool: 11. Recreational Drug Use: Never Drug Type: Tobacco Use: Never Smoker Tobacco Type: Amount or Packs/day: How Many Years: Alcohol Use: Yes Frequency: Weekly Quant: BEER
--- NOTE | 2019-10-11 09:39 | HPC ---
[facility] [place] [address] PAIN MANAGEMENT CONSULTATION Name: ASHLEY JERONIMO Room #: REG Rosagnela PrakashClaudia.#: [id number] Admission: 09/27/19 Attend Phys: Shyam Flores MD Discharge: Date of : 57 Report #: [id number] THIS REPORT FOR: cc: Edwar Marie MD,Edwar Flores,Shyam Sanchez MD ~ CC: Shyam Marie DATE OF SERVICE: 09/27/2019 PRIMARY CARE PHYSICIAN: Edwar Marie MD CHIEF COMPLAINT: Here for medication renewal, things are going reasonably well. HISTORY: The patient is a 64-year-old gentleman who has been followed in the pain clinic. As you may recall, he has osteoarthritic changes in his hands, knees and ankles. 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 He feels that his medications continue to be helpful. He rates his pain as a 3/10 today. Lying down can exacerbate his pain. Pain is generally worse in the morning. He notes that activities such as slight stretching and exercise can improve his level of comfort. He has returned today with the hopes of renewing his medications. He feels he is able to think clearly. These medications are not affecting his judgment. ALLERGIES: No known drug allergies. CURRENT MEDICATIONS: Hydrocodone 10/325 one p.o. q. 4-6 hours p.r.n., potassium 10 mEq b.i.d., ibuprofen 400 mg p.r.n. PAIN CLINIC ASSESSMENT AND PQRS: 1. The patient has some pain and discomfort from osteoarthritic changes in his knees, hands and ankles. The patient is being treated for rheumatoid arthritis in his hands and knees. 2. Height 5 feet 9 inches, weight 186 pounds, BMI is 27.5. 3. Vital signs: Blood pressure 159/87, pulse 108, respiratory rate 16, room air saturation 100%. 4. Pain intensity 06/24. 5. Fall history: The patient has not fallen in the last 3 months. 6. Blood thinner. The patient is not on a blood thinning medication. 7. Hypertension. The patient is being treated for hypertension. 8. Opioids. The patient receives medication from the pain clinic. 9. Risk assessment tool, low for opioid use. 10. Functional assessment tool . 11. Recreational drug use. The patient denies. 12. Tobacco: The patient has [place] [address] PAIN MANAGEMENT CONSULTATION Name: ASHLEY JERONIMO Room #: REG [facility]#: [id number] Admission: 09/27/19 Attend Phys: Shyam Flores MD Discharge: Date of : 57 Report #: [id number] 13. Alcohol. The patient occasionally drinks a beer. PHYSICAL EXAMINATION: GENERAL: The patient is a well-developed, well-nourished white male. Appears his stated age. He is alert and oriented x 3. His affect is appropriate. Speech is fluent. HEENT: Normocephalic, atraumatic. Extraocular eye muscles intact. Sclerae nonicteric. Mucous membranes are moist. NECK: Without adenopathy. HEART: Regular rate. ABDOMEN: Nontender. EXTREMITIES: Upper extremity muscle strength judged to be 5-/5 for the major muscle groups in the upper extremity. The patient has some pain and discomfort in his hands, shoulders and his knees bilaterally. IMPRESSION: 1. Chronic pain involving multiple generators involving his knees, back, ankles and shoulders. 2. History of chest pain, status post surgery with removal of fibrous tissue around the heart and ablation. 3. Osteoarthritis. 4. Management of pain with high risk medications. RECOMMENDATIONS: We discussed treatment options with the patient. Overall, he feels that things are going reasonably well. He is somewhat stressed as the COVID-19 pandemic continues on. He has a daughter who is graduating from school. She is a nurse. She will be starting in the COVID-19 areas in the [facility]. He is somewhat concerned about that. He feels his medications are helpful. He is aware that these medications can become a problem for certain people. They can develop addiction. He has not shown any signs of addiction. He has taken the medication as prescribed. He is having no complications. At this point, we will continue with his medications. A script for his medications of hydrocodone 10/325 one p.o. q 4 hours has been written. A total of 180 tablets monthly. We would like to thank you for letting us participate in his care. A script for the next 3 months of medications have been provided. He will call us if he has any concerns. <ELECTRONICALLY SIGNED> By: Shyam Flores MD 10/11/19 [id number] Shyam Flores MD /EJ
== END ==
LOC: PAIN 06:47
PROVIDERS: ATTEND Anesthesiology Pain Medicine
DX: G89.29 Other chronic pain (principal); M19.90 Unspecified osteoarthritis, unspecified site; F11.20 Opioid dependence, uncomplicated; Z86.69 Personal history of other diseases of the nervous system and sense organs; Z79.899 Other long term (current) drug therapy

== ENCOUNTER → 2019-12-20 | Outpatient (CLI) | payer BC, OTHER ==
[~2019-12-20] VITALS: Ht 175.3 cm; Wt 83.4 kg
--- NOTE | ~2019-12-20 | HPC ---
[facility] [address] [place] [address] PAIN MANAGEMENT CONSULTATION Name: ASHLEY JERONIMO Room #: REG Rosangela PrakashClaudia.#: [id number] Admission: 12/20/19 Attend Phys: Shyam Flores MD Discharge: Date of : 57 Report #: [id number] THIS REPORT FOR: cc: Edwar Marie MD,Edwar Flores,Shyam Sanchez MD ~ CC: Shyam Marie DATE OF SERVICE: 12/20/2019 CHIEF COMPLAINT: "Medications are still working well and I have come to renew them." HISTORY: The patient is a 64-year-old gentleman who has been followed in the Pain Clinic. 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 He has a number of osteoarthritic changes in his hands, knees and ankles. 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 He rates his pain as a 3/10. He is having no complication from the medication. He does note that the low back pain, knee pain, shoulder pain and pain in most of his joints do become more problematic with changes in temperature as well as his activity level. Pain is worse in the morning. Notes that medication, activity, stretching and light exercise continue to be beneficial. He would like to have his medications renewed. ALLERGIES: No known drug allergies. CURRENT MEDICATIONS: Hydrocodone 10/325 one p.o. every 4-6 hours p.r.n., potassium 10 mEq b.i.d., and ibuprofen 400 mg. PAIN CLINIC ASSESSMENT AND PQRS: 1. The patient has some pain and discomfort in the form of osteoarthritic changes in his knees, hands and ankles. The patient is being treated for rheumatoid arthritis in his hands and knees. 2. Height 5 feet 9 inches, weight 183 pounds, BMI is 27. 3. Vital Signs: Blood pressure 153/92, pulse 91, respiratory rate 16, and room air saturation 100%. 4. Pain intensity 06/24. 5. Fall history: The patient has not fallen in the last 3 months. 6. Blood thinner. The patient is not on a blood thinning medication. 7. Hypertension. The patient is being treated for hypertension. 8. Opioids greater than 6 weeks. The patient receives medication from the Pain Clinic. 9. Risk assessment tool, low for opioid use. 10. Functional assessment tool . 11. Recreational drug use. The patient denies. 12. Tobacco: The patient denies use of smoking. [facility] [address] [place] [address] PAIN MANAGEMENT CONSULTATION Name: ASHLEY JERONIMO Room #: REG CLI [facility]#: [id number] Admission: 12/20/19 Attend Phys: Shyam Flores MD Discharge: Date of : 57 Report #: [id number] 13. Alcohol. The patient occasionally drinks a beer. PHYSICAL EXAMINATION: GENERAL: The patient is a well-developed, well-nourished white male. Appears his stated age. He is alert and oriented x 3. His affect is appropriate. Speech is fluent. HEENT: Normocephalic, atraumatic. Extraocular eye muscles intact. Sclerae nonicteric. Mucous membranes are moist. NECK: Without adenopathy or JVD. HEART: Regular rate. ABDOMEN: Nontender. EXTREMITIES: Upper extremity muscle strength judged to be 5-/5 for the major muscle groups in the upper extremity. The patient has some pain and discomfort in his hands, shoulders and his knees bilaterally. IMPRESSION: 1. Chronic pain involving multiple generators involving the knees, back, ankles and shoulders. 2. History of chest pain, status post surgery with removal of fibrous tissue around the heart and ablation. 3. Osteoarthritis. 4. Management of pain with high risk medications. RECOMMENDATIONS: We discussed treatment options with the patient. At this juncture, we will continue with his medications. He finds that these medications continue to be helpful. He is concerned regarding the COVID-19 pandemic. He is sheltering at home as much as possible. He does have a daughter who is a nurse and is working with COVID patients in the [place] area. We will continue with his medication. A script for his medications has been written. He will continue with hydrocodone 10/325 one p.o. every 4 hours. The patient takes a total of 180 tablets per day. He is taking them as prescribed. He does not have any problems with thinking or they are not causing any problems with his mentation. A script for 3 months of medication has been provided. The patient will call us if he has any concerns. We would like to thank you for letting us participate in his care. He is using ibuprofen and I will continue to monitor his GI tract in regards to irritation from the nonsteroidal medications. By: [id number] Shyam Flores MD /harry
[2019-12-20 08:31] VITALS: BP 153/92
--- NOTE | 2019-12-20 08:44 | NUR ---
Pain Clinic Assessment: 1. History of Osteoarthritis: B/L KNEES B/L HANDS B/L ANKLES History of Rheumatoid Arthritis: B/L HANDS B/L KNEES 2. Height: 5 ft. 9 in. 175.3 cm. Weight: 183.8 lb. oz. 83.371 kg. Patient's BMI: 27.1 3. Vital Signs: BP: 153/92 Pulse: 91 Resp: 16 Temp: 02 Sat: 100 ECG Mon: 4. Pain Intensity: 3 5. Fall Risk: Dizziness: N Needs help standing or walking: N Fallen in the last 3 months: N Fall risk comments: 6. Patient on Blood Thinner: None 7. History of Hypertension: Y 8. Opioid Therapy greater than 6 weeks: Y Opiate Contract Signed: 10/23/15 9. Risk Assessment Tool Provided: 0-low 10. Functional Assessment Tool: 11. Recreational Drug Use: Never Drug Type: Tobacco Use: Never Smoker Tobacco Type: Amount or Packs/day: How Many Years: Alcohol Use: Yes Frequency: Special Occasions Quant: beer
== END ==
LOC: PAIN 06:53
PROVIDERS: ATTEND Anesthesiology Pain Medicine
DX: M17.0 Bilateral primary osteoarthritis of knee (principal); M19.072 Primary osteoarthritis, left ankle and foot; M19.071 Primary osteoarthritis, right ankle and foot; Z79.899 Other long term (current) drug therapy

== ENCOUNTER → 2020-03-11 | Outpatient (CLI) | payer BC, OTHER ==
[~2020-03-11] VITALS: Ht 175.3 cm; Wt 84.3 kg
[2020-03-11 09:33] VITALS: BP 153/108
--- NOTE | 2020-03-11 09:44 | NUR ---
Pain Clinic Assessment: 1. History of Osteoarthritis: B/L KNEES B/L HANDS B/L ANKLES History of Rheumatoid Arthritis: B/L HANDS B/L KNEES 2. Height: 5 ft. 9 in. 175.3 cm. Weight: 185.8 lb. oz. 84.278 kg. Patient's BMI: 27.4 3. Vital Signs: BP: 153/108 Pulse: 132 Resp: 16 Temp: 02 Sat: 100 ECG Mon: 4. Pain Intensity: 3 5. Fall Risk: Dizziness: N Needs help standing or walking: N Fallen in the last 3 months: N Fall risk comments: 6. Patient on Blood Thinner: None 7. History of Hypertension: Y 8. Opioid Therapy greater than 6 weeks: Y Opiate Contract Signed: 10/23/15 9. Risk Assessment Tool Provided: 0-low 10. Functional Assessment Tool: 11. Recreational Drug Use: Never Drug Type: Tobacco Use: Never Smoker Tobacco Type: Amount or Packs/day: How Many Years: Alcohol Use: Yes Frequency: Special Occasions Quant: 1
== END ==
LOC: PAIN 06:40
PROVIDERS: ATTEND Anesthesiology Pain Medicine
DX: M19.90 Unspecified osteoarthritis, unspecified site (principal); G89.29 Other chronic pain; Z72.89 Other problems related to lifestyle; Z79.891 Long term (current) use of opiate analgesic

== ENCOUNTER → 2020-06-03 | Outpatient (CLI) | payer BC, OTHER ==
[~2020-06-03] VITALS: Ht 175.3 cm; Wt 84.9 kg
[~2020-06-03] MED LIST changes: +BYSTOLIC 5 MG5 M1 PO
[2020-06-03 10:05] VITALS: BP 131/80
--- NOTE | 2020-06-03 10:20 | NUR ---
Pain Clinic Assessment: 1. History of Osteoarthritis: B/L KNEES B/L HANDS B/L ANKLES History of Rheumatoid Arthritis: B/L HANDS B/L KNEES 2. Height: 5 ft. 9 in. 175.3 cm. Weight: 187.2 lb. oz. 84.913 kg. Patient's BMI: 27.6 3. Vital Signs: BP: 131/80 Pulse: 86 Resp: 14 Temp: 02 Sat: 98 ECG Mon: 4. Pain Intensity: 2-3 5. Fall Risk: Dizziness: N Needs help standing or walking: N Fallen in the last 3 months: N Fall risk comments: 6. Patient on Blood Thinner: None 7. History of Hypertension: Y 8. Opioid Therapy greater than 6 weeks: Y Opiate Contract Signed: 10/23/15 9. Risk Assessment Tool Provided: 0-low 10. Functional Assessment Tool: 11. Recreational Drug Use: Never Drug Type: Tobacco Use: Never Smoker Tobacco Type: Amount or Packs/day: How Many Years: Alcohol Use: Yes Frequency: Weekly Quant: 2
== END ==
LOC: PAIN 07:04
PROVIDERS: ATTEND Clinical Nurse Specialist Adult Health
DX: M54.5 Low back pain (principal); M25.561 Pain in right knee; M25.562 Pain in left knee; M25.512 Pain in left shoulder; G89.4 Chronic pain syndrome; M19.90 Unspecified osteoarthritis, unspecified site; F11.20 Opioid dependence, uncomplicated

== ENCOUNTER → 2020-08-26 | Outpatient (CLI) | payer BC, OTHER ==
[~2020-08-26] VITALS: Ht 175.3 cm; Wt 84.1 kg
[2020-08-26 08:17] VITALS: BP 143/82
--- NOTE | 2020-08-26 08:25 | NUR ---
Pain Clinic Assessment: 1. History of Osteoarthritis: B/L KNEES B/L HANDS B/L ANKLES back History of Rheumatoid Arthritis: B/L HANDS B/L KNEES 2. Height: 5 ft. 9 in. 175.3 cm. Weight: 185.4 lb. oz. 84.097 kg. Patient's BMI: 27.4 3. Vital Signs: BP: 143/82 Pulse: 93 Resp: 16 Temp: 02 Sat: 99 ECG Mon: 4. Pain Intensity: 3 5. Fall Risk: Dizziness: N Needs help standing or walking: N Fallen in the last 3 months: N Fall risk comments: 6. Patient on Blood Thinner: None 7. History of Hypertension: Y 8. Opioid Therapy greater than 6 weeks: Y Opiate Contract Signed: 10/23/15 9. Risk Assessment Tool Provided: 0-low 10. Functional Assessment Tool: 11. Recreational Drug Use: Never Drug Type: Tobacco Use: Never Smoker Tobacco Type: Amount or Packs/day: How Many Years: Alcohol Use: Yes Frequency: Weekly Quant: 2
== END ==
LOC: PAIN 06:56
PROVIDERS: ATTEND Anesthesiology Pain Medicine
DX: M19.90 Unspecified osteoarthritis, unspecified site (principal); R07.89 Other chest pain; G89.29 Other chronic pain; I10 Essential (primary) hypertension; Z79.891 Long term (current) use of opiate analgesic; Z79.899 Other long term (current) drug therapy

== ENCOUNTER → 2020-11-13 | Outpatient (CLI) | payer BC, OTHER ==
[~2020-11-13] VITALS: Ht 175.3 cm; Wt 82.5 kg
[~2020-11-13] MED LIST changes: +FLOMAX0.4 MG PO
[2020-11-13 08:17] VITALS: BP 153/85
--- NOTE | 2020-11-13 08:26 | NUR ---
Pain Clinic Assessment: 1. History of Osteoarthritis: B/L KNEES B/L HANDS B/L ANKLES back History of Rheumatoid Arthritis: B/L HANDS B/L KNEES 2. Height: 5 ft. 9 in. 175.3 cm. Weight: 181.8 lb. oz. 82.464 kg. Patient's BMI: 26.8 3. Vital Signs: BP: 153/85 Pulse: 102 Resp: 14 Temp: 02 Sat: 98 ECG Mon: 4. Pain Intensity: 3 5. Fall Risk: Dizziness: N Needs help standing or walking: N Fallen in the last 3 months: N Fall risk comments: 6. Patient on Blood Thinner: None 7. History of Hypertension: Y 8. Opioid Therapy greater than 6 weeks: Y Opiate Contract Signed: 10/23/15 9. Risk Assessment Tool Provided: 0-low 10. Functional Assessment Tool: 11. Recreational Drug Use: Never Drug Type: Tobacco Use: Never Smoker Tobacco Type: Amount or Packs/day: How Many Years: Alcohol Use: Yes Frequency: Quant:
== END ==
LOC: PAIN 06:50
PROVIDERS: ATTEND Clinical Nurse Specialist Adult Health
DX: G89.29 Other chronic pain (principal); M19.90 Unspecified osteoarthritis, unspecified site; N20.0 Calculus of kidney; I10 Essential (primary) hypertension; Z79.891 Long term (current) use of opiate analgesic; Z79.899 Other long term (current) drug therapy; Z72.89 Other problems related to lifestyle

== ENCOUNTER → 2021-02-10 | Outpatient (CLI) | payer BC, OTHER ==
[~2021-02-10] VITALS: Ht 175.3 cm; Wt 84.9 kg
[2021-02-10 08:29] VITALS: BP 145/73
--- NOTE | 2021-02-10 08:39 | NUR ---
Pain Clinic Assessment: 1. History of Osteoarthritis: B/L KNEES B/L HANDS B/L ANKLES back History of Rheumatoid Arthritis: B/L HANDS B/L KNEES 2. Height: 5 ft. 9 in. 175.3 cm. Weight: 187.2 lb. oz. 84.913 kg. Patient's BMI: 27.6 3. Vital Signs: BP: 145/73 Pulse: 89 Resp: 14 Temp: 02 Sat: 98 ECG Mon: 4. Pain Intensity: 3 5. Fall Risk: Dizziness: N Needs help standing or walking: N Fallen in the last 3 months: N Fall risk comments: 6. Patient on Blood Thinner: None 7. History of Hypertension: Y 8. Opioid Therapy greater than 6 weeks: Y Opiate Contract Signed: 10/23/15 9. Risk Assessment Tool Provided: 0-low 10. Functional Assessment Tool: 11. Recreational Drug Use: Never Drug Type: Tobacco Use: Never Smoker Tobacco Type: Amount or Packs/day: How Many Years: Alcohol Use: Yes Frequency: Quant:
== END ==
LOC: PAIN 06:55
PROVIDERS: ATTEND Anesthesiology Pain Medicine
DX: G89.29 Other chronic pain (principal); M25.511 Pain in right shoulder; M25.512 Pain in left shoulder; M25.561 Pain in right knee; M25.562 Pain in left knee; M54.50 Low back pain, unspecified; M25.579 Pain in unspecified ankle and joints of unspecified foot; M19.90 Unspecified osteoarthritis, unspecified site; Z79.899 Other long term (current) drug therapy

== ENCOUNTER → 2021-05-05 | Outpatient (CLI) | payer OTHER ==
[~2021-05-05] VITALS: Ht 175.3 cm; Wt 84.6 kg
[2021-05-05 08:11] VITALS: BP 129/81
--- NOTE | 2021-05-05 08:20 | NUR ---
Pain Clinic Assessment: 1. History of Osteoarthritis: B/L KNEES B/L HANDS B/L ANKLES back History of Rheumatoid Arthritis: B/L HANDS B/L KNEES 2. Height: 5 ft. 9 in. 175.3 cm. Weight: 186.4 lb. oz. 84.551 kg. Patient's BMI: 27.5 3. Vital Signs: BP: 129/81 Pulse: 92 Resp: 14 Temp: 02 Sat: 100 ECG Mon: 4. Pain Intensity: 3 5. Fall Risk: Dizziness: N Needs help standing or walking: N Fallen in the last 3 months: N Fall risk comments: 6. Patient on Blood Thinner: None 7. History of Hypertension: Y 8. Opioid Therapy greater than 6 weeks: Y Opiate Contract Signed: 10/23/15 9. Risk Assessment Tool Provided: 0-low 10. Functional Assessment Tool: 11. Recreational Drug Use: Never Drug Type: Tobacco Use: Never Smoker Tobacco Type: Amount or Packs/day: How Many Years: Alcohol Use: Yes Frequency: Quant:
--- NOTE | 2021-05-05 15:24 | HPC ---
[facility] [address] [address] PAIN MANAGEMENT CONSULTATION Name: ASHLEY JERONIMO Room #: REG [employer]#: [id number] Admission: 05/05/21 Attend Phys: Luz Elena Anglin Discharge: Date of : 57 Report #: [id number] THIS REPORT FOR: cc: Nadia Horowitz MD,Nadia Anglin,Luz Elena JORGE ~ cc: Nadia Horowitz MD, Kartik Flores MD DATE OF SERVICE: 05/05/2021 CHIEF COMPLAINT: Back and knee pain. HISTORY OF PRESENT ILLNESS: As you know, this is a 65-year-old pleasant gentleman, who returns today for ongoing medication treatment. He continues to have ongoing osteoarthritic issues that affect his shoulders and knees as well as ongoing low back pain. Pain score today he rates as a 3/10 with his medications. He describes it as a dull aching pain, especially when he is lying down or is not active. Weather changes do also affect his arthritic issues. He reports being active and he does continue to work, so therefore he stretches every day and takes his medication and finds this very beneficial in helping reduce his overall pain and is able to function quite well. He denies any issues of constipation or daytime somnolence as a result of his medications. The patient reports as been having some ongoing tooth pain on his right lower jaw. He reports that has been infected and has been taking some antibiotics due to a heart issue prior to having this pulled. Unfortunately, it has been prolonged due to COVID in the dental office. He is hopeful to have this removed next week. He has not needed any additional pain medications currently for this pain. ALLERGIES: NO KNOWN DRUG ALLERGIES. MEDICATIONS: Hydrocodone 10/325 p.r.n., Bystolic 5 mg daily, potassium, and ibuprofen p.r.n. PQRS: 1. He has known arthritic issues in his hands, knees, shoulders and back and has a history of rheumatoid arthritis as well. Height is 5 feet 9 inches, weight is 186. BMI is 27. 2. Vital signs 129/81, pulse is 92, respirations 14, oxygen sat is 100. 3. Pain score is 3/10. 4. Denies dizziness, does not need help walking or standing, has not fallen in the last 3 months. The patient is not on any blood thinners, but does take medicine for hypertension. His risk assessment is low. Functional assessment is 14/70. Recreational drug use, he denies. He is not a smoker and occasionally drinks alcohol. [address] [address] PAIN MANAGEMENT CONSULTATION Name: ASHLEY JERONIMO Room #: REG [facility] Christine#: [id number] Admission: 05/05/21 Attend Phys: Luz Elena Anglin Discharge: Date of : 57 Report #: [id number] According to the prescription monitoring system, he is filling appropriately in a timely fashion. He is due to fill this medications today. His morphine mEq is 60 MME. There is a urine drug screen on the chart that was appropriate as well. PHYSICAL EXAMINATION: GENERAL: This is alert and orientated, well-developed, well-nourished 65-year-old gentleman, who appears his stated age, rating his current pain score 3/10 today. HEENT: Normocephalic, atraumatic. Extraocular eye muscles are intact. He is wearing facial covering for COVID precautions. NECK: Without adenopathy or JVD. Tenderness in his shoulders bilaterally with good range of motion. Upper extremity strength is symmetrical at 5/5. MUSCULOSKELETAL: He is without significant scoliosis, kyphosis, or lordosis. He has tenderness in his low back with no radicular symptoms. He also has bilateral knee pain with no edema noted. Lower extremity strength are symmetrical at 5/5. IMPRESSION: 1. Chronic pain involving multiple pain generators; knees, back and ankles and hands and shoulders. 2. History of chest pain with status post removal of fibrous tissue and ablation. 3. Osteoarthritis. 4. Management of high risk medications under terms of written opioid agreement. We reviewed the fact that opiate medications are being used to provide analgesia adequate to support activities of daily living, not attempting to achieve a specific pain score on the 0-10 Visual Analog Scale. The current opiate medications are providing sufficient analgesia to allow the patient to participate in activities of daily living. The patient is not exhibiting any aberrant behavior suggestive of drug diversion. The patient is not having any adverse reactions to medications. The patient is not suffering from daytime somnolence or mental acuity changes. The patient is managing opiate-induced constipation with appropriate [id number] agents and dietary considerations. The patient was counseled on concern for caution with operating a motor vehicle while using opiate medications. PLAN: 1. We discussed treatment options with the patient today. We will continue him on his hydrocodone 10/325 one tablet every 4-6 hours #180, written for one month release today and again in 4 and 8-week. These will be sent electronically by Dr. Rojas Flores. 2. We did discuss his medication for his tooth extraction in the form of antibiotic. We also mentioned if he is able to decrease his oral opioid medications for a few days prior, he may benefit from a few additional pills in [address] [place] [address] PAIN MANAGEMENT CONSULTATION Name: ASHLEY JERONIMO Room #: REG [facility] MFrench.#: [id number] Admission: 05/05/21 Attend Phys: Luz Elena Anglin Discharge: Date of : 57 Report #: [id number] the initial time after the extraction. The patient may be so relieved to have the infected tooth pulled, he may not need any additional pain medicines, but nonetheless we have offered a plan in case. 4. The patient will return in 3 months for medication refills. Time spent with the patient in consultation, reviewing recent studies and clinical notes and physician reports, physical examination and correlation of findings and medical documentation to determine possible treatment options, 13 minutes. Time spent in preparation for appointment, reviewing prescription monitoring system, reviewing previous records and proposed treatment options, reviewing current medications, 5 minutes. Time spent preparing and sending electronic prescriptions with collaborating physician, Dr. oRjas Flores, documentation of visit and plan of treatment, 5 minutes. Total time spent 23 minutes. <ELECTRONICALLY SIGNED> By: Luz Elena Anglin 05/05/21 1524 [id number] Luz Elena Anglin /nt
== END | disposition home or self-care (01) ==
LOC: PAIN 06:53
PROVIDERS: ATTEND Clinical Nurse Specialist Adult Health
DX: M54.50 Low back pain, unspecified (principal); M25.561 Pain in right knee; M25.562 Pain in left knee; M25.511 Pain in right shoulder; M25.512 Pain in left shoulder; M79.641 Pain in right hand; M79.642 Pain in left hand; M25.572 Pain in left ankle and joints of left foot; M25.571 Pain in right ankle and joints of right foot; M19.90 Unspecified osteoarthritis, unspecified site; Z79.899 Other long term (current) drug therapy